=== PATIENT | male | born 1975 | race Caucasian/White ===

== ENCOUNTER 2022-01-30 07:41 | Day surgery (SDC) | payer OTHER, SELFPAY ==
[2022-01-24 08:26] VITALS: BMI 21.1
[2022-01-30] VITALS (7 sets, daily range): BP systolic 105–128; BP diastolic 49–85; PULSE 83–98; RESP 10–22; TEMP 36.2–36.6; O2SAT 98–100; BMI 22.0
[2022-01-30] MEDS: LACTATED RINGERS 1,000 ML 42 ML IV (08:24)
--- NOTE | 2022-01-30 08:32 | PM.PREOP ---
Pre-operative Note COVID-19 COVID-19 status: Negative Result date/Date tested (Pos, Neg/Pending): 01/29/22 Interval Note History & Physical reviewed/Exam performed by Physician: Yes Changes to H&P: No
[2022-01-30] MEDS: CELECOXIB 200 MG CAPSULE PO (08:51)
[2022-01-30] MEDS: ACETAMINOPHEN 325 MG TABLET 975 MG PO (08:51)
--- NOTE | 2022-01-30 08:58 | SUR.PREOP ---
Block start time 0837 . Monitoring initiated and maintained throughout procedure. Medications given by anesthesiologist. Patient remained stable throughout procedure, no adverse reactions noted. Block end time 0845.
[2022-01-30] MEDS: CEFAZOLIN 2 GM/100 ML PREMIX 100 ML IV (09:09)
[2022-01-30] MEDS: BUPIVACAINE 0.5% W/ EPI (PF) 30 ML VIAL INJ (09:43)
--- NOTE | 2022-01-30 10:14 | SUR.OPER ---
Beach chair on padded OR bed. Head on folded blankets then gel donut secured with tape over gauze. Non-operative arm secured <90 degrees abduction on padded arm board. Pillow under knees. Safety belt at thigh. Cloth tape over blanket over lower legs. gel pad under bilateral heels. Operative arm draped sterile and in control of the Surgeon.
--- NOTE | 2022-01-30 11:30 | P.OP_ITS ---
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 He is gone on had to have continued sensations of subluxation and discomfort. His preoperative MRI and CT scan have both documented critical bone loss of the anterior glenoid. He has agreed to bone block reconstruction after discussion the risks benefits and alternatives. Risks discussed included but were not limited to: Potential need for revision, allograft resorption, nonunion of the graft, stiffness, infection, nerve damage, deep venous thrombosis, pulmonary embolism, stroke, myocardial infarction, permanent paralysis and . Surgeon: Elias Apodaca Security Installer: Harpreet Montana Click Yes if Unassisted: No Anesthesia Type: General, Peripheral nerve block and Local Operative Notes Findings: Significant bone loss from the anterior glenoid. Closure Type: primary Specimen(s): none sent Prosthetic devices, grafts, tissues, transplants, or devices: Implants used in this procedure included 2 Synthes partially-threaded 4.0 mm c ancellous bone screws with washers. In addition a distal tibial allograft was used as a bone block. Also there were 2 Arthrex bioabsorbable suture anchors placed for subscapularis repair. Applied: implant(s) Estimated Blood Loss (mL): 100 Blood products transfused: none Procedure in detail: The patient was seen in the pre-operative area, where the patient identified the left shoulder as the operative site and this was marked with my initials. The patient received pre-operative antibiotics, underwent an interscalene block, and was taken to the operating room and placed on the operative table in the supine position. After satisfactory anesthesia, a full ?time out? was performed. The patient was repositioned in the ?beach chair? position using the standard operating room table. All pressure points were well padded, and the knees were slightly bent to prevent tension on the sciatic nerves. The left arm was prepared from the fingers to the base of the neck with ChloroPrep in the usual fashion and draped through sterile drapes. The allograft was prepared taking the lateral cm of the tibia approximately a cm deep. This was extensively irrigated with a pulsatile lavage to remove marrow elements. Two K-wires were placed to act as joysticks and provisional fixation. An approximately 10 cm incision was created, starting at the clavicle above the coracoid process and extended towards the deltoid insertion. The deltopectoral interval was used to access the shoulder. The cephalic vein was taken laterally. A self retaining retractor was placed. The ?three sisters? were identified and cauterized. The axillary nerve was palpated and protected throughout the case. The subscapularis was released from the lesser tuberosity with a subscapularis tenotomy and tagged for later repair. The shoulder was dislocated and a Fukuda retractor placed to retract the humeral head after removal of the self-retaining retractor. The subscapularis and capsular were released from the anterior glenoid from the prior repair. The anterior glenoid was prepared to bleeding bone using a buck. The allograft was placed against the anterior glenoid and a good fit of the articular surface confirmed. The K-wires were there in driven across the glenoid to provide provisional fixation. Two holes were drilled, measured and tapped for screw fixation. The appropriate partially-threaded screws were placed with washers. Prior to finally tightening the screws a #2 Ethibond was applied around each of the screws for eventual capsular repair. The screws were then tightened and the K-wires removed. The wound was copiously irrigated. The previously placed Ethibond sutures were used to repair the capsule to the allograft. The joint was irrigated and the subscapularis repaired to the lesser tuberosity using 2 bioabsorbable double threaded anchors placed in the lesser tuberosity. One of the sutures from each of the anchors was placed as a mattress suture and the 2nd suture was placed as a simple suture across the mattress suture to provide a grasping stitch. The top of the subscapularis was closed to the leading edge of the supraspinatus with a figure of 8 #2 Ethibond to close the rotator interval. In between the anchors a #2 Ethibond was placed as a [id number] suture as well. The deltopectoral interval was closed with interrupted 0 Vicryl. The subcutaneous layer was closed with 3-0 Vicryl, and the skin with a running 3-0 V-Lock suture and SteriStrips. An Aquacel Ag dressing was applied, the patient?s arm was placed in a sling, and the patient was taken to recovery having tolerated the procedure well. The services of a skilled kindergarten instructional assistant were necessary during this case due to the complex nature of the procedure. Extensive retraction was also necessary to expose the glenoid for appropriate positioning of the allograft. The services of Dr. Montana as an kindergarten instructional assistant were absolutely necessary for expedient completion of this case. Complications: none Post-operative Condition: stable Disposition: PACU Plan for aftercare: The patient will be maintained on a standard Bankart repair protocol. Initially he will be limited to 90? forward flexion, 0? external rotation at the side and 0? abduction. This will be for 2 weeks. He will then be slowly advanced per protocol with physical therapy.
== END 2022-01-30 12:10 | disposition home or self-care (01) ==
PROVIDERS: PCP Preventive Medicine Occupational Medicine; Referring Provider Orthopaedic Surgery; Visit Provider Orthopaedic Surgery
PROC: (CPT 23462; principal; 2022-01-30 08:45)
DX: M24.412 Recurrent dislocation, left shoulder (principal); F17.210 Nicotine dependence, cigarettes, uncomplicated
CPT/HCPCS: 23460; 64450; J0690; J1100; J2250; J2405; J2704; J3010